=== PATIENT | male | born 1960 | race Caucasian/White ===

== ENCOUNTER 2017-11-10 12:11 | Emergency (ER) | payer OTHER ==
--- NOTE | 2017-11-10 13:13 | ED GENERAL ADULT ---
History of Present Illness General Chief Complaint: ETOH/Drug Related Complaint Stated Complaint: ALCOHOL DETOX Source: patient Exam Limitations: no limitations Vital Signs & Intake/Output Vital Signs & Intake/Output Vital Signs Date Time Temp Pulse Resp B/P B/P Pulse O2 O2 Flow FiO2 Mean Ox Delivery Rate 11/10 2114 97.6 88 18 142/88 97 Room Air Room Air 11/10 2021 97.9 92 18 146/89 / 1904 97.9 92 18 146/89 / 1904 97.9 92 18 146/89 98 Room Air 11/10 1704 97.6 69 18 132/90 06/03 1650 97.6 69 18 132/90 100 Room Air 11/10 1436 97.0 84 18 163/92 96 Room Air 11/10 1423 99 Room Air 11/10 1252 97.0 88 18 157/97 99 Room Air Allergies Coded Allergies: Penicillins (Intermediate, RASH 11/10/17) Triage Note: 57M TO ED SEEKING ASSISTANCE FOR ETOH DETOX. REPORTS 12 BEERS DAILY, OFTEN USED TO ASSIST SLEEP AID. LAST DRINK WAS LAST NIGHT. CURRENT CIWA 3. 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 APPEARS DEPRESSED, BUT MOTIVATED FOR SOBRIETY. DENIES HX SEIZURES OR DT'S. DENIES HARD ALCOHOL OR ILLICIT DRUGS. DENIES SI/HI AND IS IN AGREEMENT WITH PLAN FOR PROCESS OF EVALUATION. Triage Nurses Notes Reviewed? yes Onset: several years of chronic alcohol use Timing: Daily alcohol use Severity: moderate No Modifying Factors: none Associated Symptoms: None HPI: This is a 57yoM with hx of HTN and ETOH abuse who presents requesting alcohol detox. He states that he is a daily drinker and cannot go to work without drinking several beers. While at work, he drinks a few more beers. He denies any history of withdrawal seizure. He states when he stops drinking he gets "the shakes". He arrives sober and well-appearing, denying any suicidal or homicidal ideation. He has had no auditory visual hallucinations. He is a clear sensorium otherwise. (Karl GAMBOA,Fidel) Past History Travel History Traveled to [place] past 21 day No Medical History Any Pertinent Medical History? none Neurological: NONE EENT: NONE Cardiovascular: hypertension Respiratory: NONE Gastrointestinal: NONE Hepatic: NONE Renal: NONE Musculoskeletal: NONE Psychiatric: NONE Endocrine: NONE Blood Disorders: NONE Cancer(s): NONE Surgical History Surgical History: non-contributory Psychosocial History What is your primary language Egyptian Tobacco Use: Current Daily Use Daily Tobacco Use Amount/Type: Smokeless tobacco daily Family History Hx Contributory? No (Fidel Barajas MD) Review of Systems Review of Systems Constitutional: Reports: no symptoms. EENTM: Reports: no symptoms. Respiratory: Reports: no symptoms. Cardiovascular: Reports: no symptoms. GI: Reports: no symptoms. Musculoskeletal: Reports: no symptoms. Skin: Reports: no symptoms. Neurological/Psychological: Reports: no symptoms. (Fidel Barajas MD) Physical Exam Physical Exam General Appearance: well developed/nourished, no apparent distress, alert, anxious Head: atraumatic, normal appearance Eyes: Bilateral: normal appearance, PERRL, EOMI. Ears, Nose, Throat: normal pharynx, normal ENT inspection Neck: normal inspection, supple, full range of motion Respiratory: normal breath sounds, chest non-tender, no respiratory distress, lungs clear Cardiovascular: regular rate/rhythm Gastrointestinal: normal bowel sounds, soft, non-tender Back: normal range of motion Extremities: normal inspection Neurologic/Psych: no motor/sensory deficits, awake, alert, oriented x 3, normal gait, trace intention tremor Core Measures ACS in differential dx? No CVA/TIA Diagnosis: No Sepsis Present: No Sepsis Focused Exam Completed? No (Fidel Barajas MD) Progress Differential Diagnoses I considered the following diagnoses in my evaluation of the patient: Trace intention tremor. Alcohol intoxication, alcohol withdrawal, substance abuse, polysubstance abuse, Metabolic derangement, malnutrition. Low suspicion for suicidal ideation. Plan of Care: Orders Procedure Date/time Status Regular Diet 11/10 D Active Add-on Test (ER Only) 11/10 1534 Active CIWA 11/10 1408 Active EKG 11/10 1408 Active ETHANOL 11/10 1352 Complete URINE DRUG SCREEN FOR ER ONLY 11/10 1348 Complete COMPREHENSIVE METABOLIC PANEL 11/10 1348 Complete CBC WITHOUT DIFFERENTIAL 11/10 1348 Complete Laboratory Tests 11/10/17 1900: Urine Opiates Screen < 100, Methadone Screen < 40, Barbiturate Screen < 60, Ur Phencyclidine Scrn < 6.00, Amphetamines Screen < 100, U Benzodiazepines Scrn < 85, Urine Cocaine Screen < 50, Urine Cannabis Screen < 5.00 11/10/17 1711: Methadone Screen Cancelled, Barbiturate Screen Cancelled, Ur Phencyclidine Scrn Cancelled, Amphetamines Screen Cancelled, U Benzodiazepines Scrn Cancelled, Urine Cocaine Screen Cancelled, Urine Cannabis Screen Cancelled 11/10/17 1352: Anion Gap 10, Estimated GFR > 60, BUN/Creatinine Ratio 14.3, Glucose 130 H, Calcium 9.2, Total Bilirubin 1.7 H, AST 29, ALT 54, Alkaline Phosphatase 62, Total Protein 7.8, Albumin 4.2, Globulin 3.6, Albumin/Globulin Ratio 1.2, CBC w Diff NO MAN DIFF REQ, RBC 4.80, MCV 93.3, MCH 32.3 H, MCHC 34.6, RDW 12.9, MPV 6.6 L, Gran % 65.2, Lymphocytes % 22.5, Monocytes % 12.0 H, Eosinophils % 0, Basophils % 0.3, Absolute Granulocytes 3.1, Absolute Lymphocytes 1.1 L, Absolute Monocytes 0.6, Absolute Eosinophils 0, Absolute Basophils 0, Serum Alcohol < 10.0 Initial ED EKG: NSR Comments: Patient stays for several hours in the emergency department for a total of 26 hours of sobriety without significant CIWA score. He is well-appearing on reassessment. His arrived in the emergency department and after prolonged discussion, patient elects to be discharged home rather than pursue inpatient detoxification. He will follow-up with outpatient detox. He is given return precautions and follow-up instructions. He is well appearing and sober on discharge. (Fidel Barajas MD) Departure Departure Disposition: HOME OR SELF CARE Condition: Stable Clinical Impression Primary Impression: Alcohol abuse Referrals: Shalom GAMBOA,Beck Sarmiento (PCP/Family) Additional Instructions: Please return the emergency department if you develop any new or worsening symptoms. Departure Forms: Customer Survey General Discharge Information (Fidel Barajas MD) Resident Co-Sign Statement Statement: ED Attending supervision documentation- I saw and evaluated the patient. I have also reviewed all the pertinent lab results and diagnostic results. I agree with the findings and the plan of care as documented in the Resident's documentation. x I have reviewed the ED Record and agree with the Resident's documentation. [] Additions or exceptions (if any) to the Resident's note and plan are summarized below: [] (Jake GAMBOA,Black) Critical Care Note Critical Care Note Critical Care Time: non-applicable (Karl GAMBOA,Fidel)
[2017-11-10 14:10] LABS: ABSOLUTE BASOPHIL COUNT 0 /CUMM (0.0-0.2); ABSOLUTE EOSINOPHIL COUNT 0 /CUMM (0.0-0.7); ABSOLUTE GRANULOCYTE CT 3.1 /CUMM (1.4-6.5); ABSOLUTE LYMPH COUNT 1.1 /CUMM (1.2-3.4); ABSOLUTE MONOCYTE COUNT 0.6 /CUMM (0.10-0.60); BASOPHIL % 0.3 % (0.0-2.0); EOSINOPHIL % 0 % (0-5); GRANULOCYTE % 65.2 % (42.2-75.2); HEMATOCRIT 44.9 % (42-52); MEAN CORPUSCULAR HGB 32.3 PG (27.0-31.0); MEAN CORPUSCULAR HGB CONC 34.6 G/DL (33.0-37.0); MEAN CORPUSCULAR VOLUME 93.3 FL (80.0-94.0); MEAN PLATELET VOLUME 6.6 FL (7.4-10.4); PLATELET COUNT 259 /CUMM (130-400); RBC DISTRIBUTION WIDTH 12.9 % (11.5-14.5); WHITE BLOOD CELL COUNT 4.7 /CUMM (4.8-10.8)
[2017-11-10 21:15] VITALS: BP 142/88
== END 2017-11-10 21:15 ==
LOC: ERH 12:11
PROVIDERS: Student in an Organized Health Care Education/Training Program
DX: F10.10 Alcohol abuse, uncomplicated (principal)
CPT/HCPCS: 80307; 93005; 93010; G0480